=== PATIENT | male | born 1990 | race Two or more races ===

== ENCOUNTER 2016-12-06 13:39 | Emergency (ER) | payer MEDICAID ==
[2016-12-06 14:28] VITALS: RESP 18; TEMP 98.2
[2016-12-06] MEDS ORDERED: LORazepam 2 MG/ML INJ IVP ONE (15:21)
--- NOTE | 2016-12-06 15:31 | CPEKG ---
Heart Rate: 81 RR Interval: 741 P-R Interval: 132 QRSD Interval: 100 QT Interval: 408 QTC Interval: 474 P [place]: 34 QRS [place]: 72 T Wave [place]: 48 EKG Severity - BORDERLINE ECG - EKG Impression: SINUS ARRHYTHMIA, RATE 61-102 EKG Impression: BORDERLINE PROLONGED QT INTERVAL Electronically Signed By: Philip Watson 06-Dec-2016 22:41:12
--- NOTE | 2016-12-06 15:33 | EDPHY ---
H & P Time Seen by Provider: 12/06/16 15:29 HPI/ROS: HPI: Mr. Santamaria is a 26 yrs, male who presents with Chief Complaint: Generalized anterior chest pain Location: Anterior pleuritic chest Quality: Pain Duration: Greater than 8 hours, started while at the gas station today Signs and Symptoms: No shortness of breath, no nausea vomiting, no diaphoresis , no lower leg swelling, no headache, no wheezing, no palpitations, no fever, no cough Timing: Acute, constant Severity: 10 out 10 Context: Patient admits to smoking as well as snorting methamphetamine consistently for the last 3-4 days. Last ingestion was at 7:30 a.m. this morning. Was at the gas station prior to arrival he began to experience "a panic attack" then reports he started to feel generalized anterior chest pain that was nonradiating described as sharp, non positional. no prior cardiac history. no hx lung disease. Modifying Factors: Tried no [id number] medications Comment: ROS: Eyes: No blurred vision Respiratory: No shortness of breath, no cough Cardiovascular: + chest pain Gastrointestinal: No nausea, no vomiting no diarrhea Genitourinary: No dysuria Extremities: No myalgias Neurologic: No weakness, no numbness Skin: No rashes Hematologic: No bruising, no bleeding MEDICAL/SURGICAL HISTORY: Generally healthy. Right inguinal hernia repair as a child. Social History: Currently employed. Admits to recreational drug use of methamphetamine and marijuana. Denies tobacco use. Smoking Status: Current every day smoker Physical Exam: CONSTITUTIONAL: Extremely anxious male, cooperative, awake and alert, no obvious distress HEENT: Atraumatic and normocephalic, PERRL, EOMI. Tympanic membranes clear. . Oropharynx clear, no exudate and moist pink mucosa. Airway patent. No lymphadenopathy. No meningismus. Cardiovascular: Normal S1/S2, tachycardia, regular rhythm, without murmur rub or gallop. PULMONARY/CHEST: Symmetrical and nontender. Clear to auscultation bilaterally. Good air movement. No accessory muscle usage. tachypnea. ABDOMEN: Soft, nondistended, nontender, no rebound, no guarding, no peritoneal signs, no masses or organomegaly. No CVAT. EXTREMITIES: 2/2 pulses, no deformities, no clubbing, no cyanosis or edema. NEUROLOGICAL: no focal neuro deficits. GCS 15. SKIN: Warm and dry, no erythema. no rash. Good capillary refill. Constitutional: Initial Vital Signs Temperature (C) 36.5 C 12/06/16 13:44 Heart Rate 125 H 12/06/16 13:44 Respiratory Rate 24 H 12/06/16 13:44 Blood Pressure 159/112 H 12/06/16 13:44 O2 Sat (%) 98 12/06/16 13:44 O2 Delivery Mode Room Air Allergies/Adverse Reactions: No Known Allergies Allergy (Unverified 12/06/16 14:27) Home Medications: Medication Instructions Recorded predniSONE [predniSONE TAPER] 10 mg PO DAILY #0 ea 12/06/16 Medical Decision Making - Diagnostics EKG Interpretation: 12 lead EKG: Indication: chest pain Rhythm: Sinus arrhythmia rate varying between 61 to 102 beats per minute [place]: Normal axis Intervals: Normal QRS: Normal ST segments: Nonspecific changes INTERPRETATION: QTC 474 The 12 lead EKG was interpreted by myself. Imaging Results: Imaging Impressions Chest X-Ray 12/06/16 15:21 Impression: Mild central bronchitis, otherwise normal.. ED Course/Re-evaluation: EKG, chest x-ray, labs, IV medications ordered EKG shows P-waves and sinus arrhythmia with varying rate. Reviewed with Dr. Mckeon. 1530: Given IV Ativan 1 mg Potassium low at 2.8; magnesium level 2.0; p.o. potassium supplementation given Chest x-ray rad read bronchitis; IV Solu-Medrol 125 mg. No signs of wheezing or hypoxia. Suspect chemical pneumonitis from meth inhalation. at discharge, patient had complete resolution of pain No signs of pulmonary embolism; Wells criteria/PERC rule low troponin unremarkable Differential Diagnosis: Chest pain including but not limited to myocardial ischemia, pulmonary embolus, chest wall pain, pleural inflammation and pulmonary infectious causes. - Data Points Laboratory Results: Laboratory Results 12/06/16 15:37 12/06/16 15:37 12/06/16 12/06/16 12/06/16 15:37 15:37 15:37 WBC 9.99 10^3/uL H 10^3/uL (3.80-9.50) RBC 5.47 10^6/uL 10^6/uL (4.40-6.38) Hgb 16.3 g/dL g/dL (13.7-17.5) Hct 46.3 % % (40.0-51.0) MCV 84.6 fL fL (81.5-99.8) MCH 29.8 pg pg (27.9-34.1) MCHC 35.2 g/dL g/dL (32.4-36.7) RDW 12.2 % % (11.5-15.2) Plt Count 312 10^3/uL 10^3/uL (150-400) MPV 8.5 fL L fL (8.7-11.7) Neut % (Auto) 52.6 % % (39.3-74.2) Lymph % (Auto) 35.8 % % (15.0-45.0) [place] % (Auto) 9.6 % % (4.5-13.0) Eos % (Auto) 1.2 % % (0.6-7.6) Baso % (Auto) 0.6 % % (0.3-1.7) Nucleat RBC Rel Count 0.0 % % (0.0-0.2) Absolute Neuts (auto) 5.25 10^3/uL 10^3/uL (1.70-6.50) Absolute Lymphs (auto) 3.58 10^3/uL H 10^3/uL (1.00-3.00) Absolute Monos (auto) 0.96 10^3/uL H 10^3/uL (0.30-0.80) Absolute Eos (auto) 0.12 10^3/uL 10^3/uL (0.03-0.40) Absolute Basos (auto) 0.06 10^3/uL 10^3/uL (0.02-0.10) Absolute Nucleated RBC 0.00 10^3/uL 10^3/uL (0-0.01) Immature Gran % 0.2 % % (0.0-1.1) Immature Gran # 0.02 10^3/uL 10^3/uL (0.00-0.10) D-Dimer 0.33 ug/mLFEU ug/mLFEU (0.00-0.50) Sodium 136 mEq/L mEq/L (134-144) Potassium 2.8 mEq/L L mEq/L (3.5-5.2) Chloride 99 mEq/L mEq/L (97-110) Carbon Dioxide 21 mEq/l L mEq/l (22-31) Anion Gap 16 mEq/L mEq/L (8-16) BUN 11 mg/dL mg/dL (7-23) Creatinine 1.1 mg/dL mg/dL (0.7-1.3) Estimated GFR > 60 Glucose 102 mg/dL H mg/dL (70-100) Calcium 10.8 mg/dL H mg/dL (8.5-10.4) Phosphorus 1.9 mg/dL L mg/dL (2.5-4.5) Magnesium Troponin I < 0.012 ng/mL ng/mL (0.000-0.034) 12/06/16 15:27 WBC RBC Hgb Hct MCV MCH MCHC RDW Plt Count MPV Neut % (Auto) Lymph % (Auto) [place] % (Auto) Eos % (Auto) Baso % (Auto) Nucleat RBC Rel Count Absolute Neuts (auto) Absolute Lymphs (auto) Absolute Monos (auto) Absolute Eos (auto) Absolute Basos (auto) Absolute Nucleated RBC Immature Gran % Immature Gran # D-Dimer Sodium Potassium Chloride Carbon Dioxide Anion Gap BUN Creatinine Estimated GFR Glucose Calcium Phosphorus Magnesium 2.0 mg/dL mg/dL (1.6-2.3) Troponin I Medications Given: Discontinued Medications Sodium Chloride (Ns) 1,000 mls @ 0 mls/hr IV EDNOW ONE; Wide Open PRN Reason: Protocol Stop: 12/06/16 15:36 Last Admin: 12/06/16 15:39 Dose: 1,000 mls Lorazepam (Ativan Injection) 1 mg IVP EDNOW ONE Stop: 12/06/16 15:22 Last Admin: 12/06/16 15:37 Dose: 1 mg Methylprednisolone Sodium Succinate (Solu-Medrol) 125 mg IVP EDNOW ONE Stop: 12/06/16 16:17 Last Admin: 12/06/16 16:29 Dose: 125 mg Potassium Chloride (Klor-Con) 40 meq PO ONCE ONE Stop: 12/06/16 16:12 Last Admin: 12/06/16 16:29 Dose: 40 meq Departure - Departure Disposition: Home, Routine, Self-Care Clinical Impression: Methamphetamine abuse, Pneumonitis, Hypokalemia with normal acid-base balance Condition: Good Instructions: Pneumonitis (ED), Methamphetamine Abuse (ED) Additional Instructions: Increased consumption of potassium containing foods. Follow-up with [facility] in 3-5 days for repeat basal metabolic panel to evaluate potassium. Take all medications as directed. Discontinue recreational drug use. Referrals: NONE *PRIMARY CARE P,. [Primary Care Provider] - As per Instructions [facility] [Clinic] - 2-3 days, call for appt. (needs repeat potassium level ) Prescriptions: predniSONE [predniSONE TAPER] 10 mg PO DAILY #0 ea
[2016-12-06] MEDS ORDERED: NS 1,000 ML IV ONE (15:35)
[2016-12-06 15:48] LABS: % IMMATURE GRANULYOCYTES 0.2 % (0.0-1.1); ABSOLUTE IMMATURE GRANULOCYTES 0.02 10^3/uL (0.00-0.10); ADD DIFF? NO; ADD MORPH? NO; ADD SCAN? NO; ATYPICAL LYMPHOCYTE FLAG 0 (0-99); FRAGMENT RBC FLAG 0 (0-99); HEMATOCRIT 46.3 % (40.0-51.0); HEMOGLOBIN 16.3 g/dL (13.7-17.5); LEFT SHIFT FLG 0 (0-99); LIPEMIA HEMOLYSIS FLAG 90 (0-99); MEAN CELL HEMOGLOBIN 29.8 pg (27.9-34.1); MEAN CELL HEMOGLOBIN CONCENTR. 35.2 g/dL (32.4-36.7); MEAN CELL VOLUME 84.6 fL (81.5-99.8); MEAN PLATELET VOLUME 8.5 fL (8.7-11.7); PLATELET CLUMPS FLAG 10 (0-99); PLATELET COUNT 312 10^3/uL (150-400); RED BLOOD CELL COUNT 5.47 10^6/uL (4.40-6.38); RED CELL DISTRIBUTION WIDTH 12.2 % (11.5-15.2)
[2016-12-06 16:09] LABS: ANION GAP 16 mEq/L (8-16); CALCIUM 10.8 mg/dL (8.5-10.4); CARBON DIOXIDE 21 mEq/l (22-31); CHLORIDE 99 mEq/L (97-110); CREATININE 1.1 mg/dL (0.7-1.3); GLOMERULAR FILTRATION RATE > 60; GLUCOSE 102 mg/dL (70-100); POTASSIUM 2.8 mEq/L (3.5-5.2); SODIUM 136 mEq/L (134-144)
[2016-12-06] MEDS ORDERED: POTASSIUM CL 20 MEQ TAB PO ONE (16:11)
[2016-12-06] MEDS ORDERED: methylPREDNISolone SOD SUCC 125 MG/2 ML VIAL IVP ONE (16:16)
[2016-12-06 16:21] LABS: TROPONIN I < 0.012 ng/mL (0.000-0.034)
[2016-12-06] MEDS ORDERED: methylPREDNISolone SOD SUCC 125 MG/2 ML VIAL ONE (16:24)
[2016-12-06 17:40] VITALS: BP 141/98; PULSE 60; O2SAT 97
--- NOTE | 2016-12-08 10:50 | CPEKG ---
Heart Rate: 70 RR Interval: 857 QRSD Interval: 98 QT Interval: 388 QTC Interval: 419 QRS [place]: 70 T Wave [place]: 46 EKG Severity - ABNORMAL ECG - EKG Impression: Sinus rhythm with competing junctional rhythm. Electronically Signed By: Ayad Garcia 08-Dec-2016 14:00:38
== END 2016-12-06 17:39 | disposition home or self-care (01) ==
DX: J18.9 Pneumonia, unspecified organism (principal); E86.9 Volume depletion, unspecified; F15.10 Other stimulant abuse, uncomplicated; E87.6 Hypokalemia
CPT/HCPCS: 96374; J2060

== ENCOUNTER 2018-06-11 08:11 | Emergency (ER) | payer MEDICAID ==
[2018-06-11 08:17] VITALS: BP 136/93
--- NOTE | 2018-06-11 08:21 | EDPHY ---
H & P Stated Complaint: left elbow pain since fall last night. Time Seen by Provider: 06/11/18 08:21 - Personal History Current Tetanus Diphtheria and Acellular Pertussis (TDAP): Unsure - Medical/Surgical History Hx Asthma: No Hx Chronic Respiratory Disease: No Hx Diabetes: No Hx Cardiac Disease: No Hx Renal Disease: No Hx Cirrhosis: No Hx Alcoholism: No Hx HIV/AIDS: No Hx Splenectomy or Spleen Trauma: No Other PMH: denies - Social History Smoking Status: Current every day smoker Constitutional: Initial Vital Signs Temperature (C) 36.8 C 06/11/18 08:13 Heart Rate 112 H 06/11/18 08:13 Respiratory Rate 18 06/11/18 08:13 Blood Pressure 136/93 H 06/11/18 08:13 O2 Sat (%) 97 06/11/18 08:13 O2 Delivery Mode Room Air Allergies/Adverse Reactions: No Known Allergies Allergy (Verified 06/11/18 08:17) Home Medications: Medication Instructions Recorded Hydrocodone/APAP 5/325 [[place] 1 - 2 each PO Q4-6PRN PRN #10 tab 06/11/18 5/325] Ibuprofen [Motrin] 800 mg PO Q8 #20 tab 06/11/18 Medical Decision Making ED Course/Re-evaluation: CHIEF COMPLAINT: Left arm injury, cough HISTORY OF PRESENT ILLNESS: The patient is a 27 y/o male complaining of injuring his left elbow last night. The patient slipped on ice last night and braced his fall with an out-stretched left arm. He denies hitting his head or loss of consciousness. Since the fall he has had significant left elbow and wrist pain and mild left shoulder pain. Due to this pain he has limited range of motion of those joints. He also has some numbness in his left forearm. He is complaining of a mild cough. No fever, headache, chest pain, shortness of breath, abdominal pain, urinary or bowel complaints. REVIEW OF SYSTEMS: A comprehensive 10 system review of systems is otherwise negative aside from elements mentioned in the history of present illness and medical decision making. PHYSICAL EXAM: HR, BP, O2 Sat, RR. Temp noted General Appearance: Alert, well hydrated, appropriate, and non-toxic appearing. Head: Atraumatic without scalp tenderness or obvious injury Eyes: Pupils equal, round, reactive to light and accommodation, EOMI, no trauma , no injection. Ears: Clear bilaterally, no perforation, normal landmarks Nose: Atraumatic, no rhinorrhea, clear. Throat: There is no erythema or exudates, no lesions, normal tonsils, mucus membranes moist. Neck: Supple, 2+ carotid upstroke, nontender, no lymphadenopathy. Respiratory: Few scattered rhonchi bilaterally No retractions, no distress, no wheezes, and no accessory muscle use. Cardiovascular: Regular rate and rhythm, no murmurs, rubs, or gallops. Bilateral carotid, radial, dorsalis pedis, and posterior tibial pulses intact. Good capillary refill all extremities. Gastrointestinal: Abdomen is soft, nontender, non-distended, no masses, no rebound, no guarding, no peritoneal signs. Musculoskeletal: Tenderness over the left olecranon and wrist; limited ROM secondary to pain. No other trauma noted. Neurological: Alert, appropriate, and interactive. The patient has normal DTRs and non-focal cranial nerves, motor, sensory, and cerebellar exam. Skin: No rashes, good turgor, no nodules on palpation. Past medical history: Denies Past surgical history: Denies Family history: Denies Social history: Lives in [place], single, employed DIAGNOSTICS/PROCEDURES/CRITICAL CARE TIME: Left elbow x-ray: No acute osseous findings. Left wrist x-ray: No acute osseous findings. DIFFERENTIAL DIAGNOSIS: The differential diagnosis for the patient's arm injury included but was not limited to fracture, ligamentous injury, contusion, muscular strain. The differential diagnosis for the patient's cough included but was not limited to bronchitis, pneumonia, viral syndrome, meningitis, and sepsis. MEDICAL DECISION MAKING: The patient is a 27 y/o male presenting with injuring his left elbow last night after slipping on ice and falling. On exam he has tenderness over the left olecranon and wrist which is causing limited ROM. He also has a few scattered rhonchi bilaterally. Left elbow and wrist x-ray ordered. 0900: I reviewed patient's patient's x-ray which do not reveal any osseous injury. Patient most likely has an elbow and wrist sprain. Patient will be sent home in a sling with plan for orthopedic follow up. Reassessed patient and discussed imaging findings. I have prescribed him Motrin and [place] for his pain. Return precautions provided; patient is comfortable with this plan. Departure - Departure Disposition: Home, Routine, Self-Care Clinical Impression: Bronchitis Left elbow contusion Qualifiers: Encounter type: initial encounter Qualified Code(s): S50.02XA - Contusion of left elbow, initial encounter Wrist injury Qualifiers: Encounter type: initial encounter Laterality: left Qualified Code(s): S69.92XA - Unspecified injury of left wrist, hand and finger(s), initial encounter Elbow sprain Qualifiers: Encounter type: initial encounter Laterality: left Qualified Code(s): S53.402A - Unspecified sprain of left elbow, initial encounter Left wrist sprain Qualifiers: Encounter type: initial encounter Qualified Code(s): S63.502A - Unspecified sprain of left wrist, initial encounter Condition: Good Instructions: Acute Bronchitis (ED), Elbow Sprain (ED), Wrist Sprain (ED) Additional Instructions: 1. Rest, ice, elevation. 2. Follow up with an orthopedic surgeon within one week. 3. Return to the emergency department for worsening pain, swelling, numbness, weakness or other concerns. 4. You will likely need an MRI to further evaluate your injury. 5. Use ibuprofen in addition to prescribed pain medication as directed for pain. 6. Take [place] as prescribed. 6. Wear sling for comfort. Referrals: Alfred Bermeo MD [Medical Doctor] - As per Instructions Prescriptions: Hydrocodone/APAP 5/325 [[place] 5/325] 1 - 2 each PO Q4-6PRN PRN #10 tab PRN Reason: Pain, Moderate Ibuprofen [Motrin] 800 mg PO Q8 #20 tab Report Scribed for: Philip Watson Report Scribed by: Bette Miller Date of Report: 06/11/18 Time of Report: 08:22
== END 2018-06-11 09:11 | disposition home or self-care (01) ==
DX: S53.402A Unspecified sprain of left elbow, initial encounter (principal); S50.02XA Contusion of left elbow, initial encounter; J40 Bronchitis, not specified as acute or chronic; W00.0XXA Fall on same level due to ice and snow, initial encounter; Y92.9 Unspecified place or not applicable; Y93.9 Activity, unspecified; Y99.9 Unspecified external cause status
CPT/HCPCS: A4565